=== PATIENT | female | born 1975 | race African-American/Black ===

== ENCOUNTER 2020-05-07 04:55 | Day surgery (SDC) | payer BC ==
[2020-05-01 17:20] VITALS: BMI 32.8
[2020-05-07] MEDS ORDERED: PROPOFOL 20 ML ONE (07:26)
[2020-05-07] MEDS ORDERED: ROCURONIUM BROMIDE 50 MG/5 ML SYRINGE ONE (07:26)
[2020-05-07] MEDS ORDERED: MIDAZOLAM HCL 2 MG/2 ML SINGLE DOSE VIAL ONE ×2 (07:35)
[2020-05-07] MEDS ORDERED: ROPIVACAINE HCL 0.5% 30ML VIAL ONE (07:38)
[2020-05-07] MEDS ORDERED: KETOROLAC TROMETHAMINE 30 MG/1 ML VIAL ONE ×2 (08:08→09:44)
[2020-05-07] MEDS ORDERED: DEXAMETHASONE SOD PHOSPHATE 4 MG/1 ML VIAL ONE (08:08)
[2020-05-07] MEDS ORDERED: ceFAZolin SODIUM 1 GM VIAL ONE (08:08)
[2020-05-07] MEDS ORDERED: LIDOCAINE HCL/PF 2% SDV 5ML VIAL ONE (08:08)
[2020-05-07] MEDS ORDERED: ceFAZolin 2 GRAM PREMIX BAG IVPB ONE (08:10)
[2020-05-07] MEDS ORDERED: EPHEDRINE SULFATE/0.9% NACL/PF 50 MG/10 ML SYRINGE NR ONE (08:38)
[2020-05-07] MEDS ORDERED: ACETAMINOPHEN INJECTION 100 ML IVPB ONE (08:40)
[2020-05-07] MEDS ORDERED: ONDANSETRON 4 MG/2 ML VIAL IVPUSH PRN ×2 (08:51→10:09)
[2020-05-07] MEDS ORDERED: PHENYLEPHRINE HCL 10 MG/1 ML SINGLE DOSE VIAL ONE (09:05)
[2020-05-07] MEDS ORDERED: HYDROmorphone HCl 2 MG/ML VIAL ONE (10:06)
[2020-05-07] MEDS ORDERED: BISACODYL 5 MG TABLET.DR (FP) PO PRN (10:09)
[2020-05-07] MEDS ORDERED: oxyCODONE HCL 5 MG TABLET PO PRN ×2 (10:09)
[2020-05-07] MEDS ORDERED: FAMOTIDINE 10 MG TABLET PO PRN (10:26)
[2020-05-07] MEDS ORDERED: ACETAMINOPHEN 325 MG TABLET (FP) PO SCH (11:15)
[2020-05-07] MEDS ORDERED: oxyCODONE HCL 5 MG TABLET PO ONE (13:25)
[2020-05-07] MEDS ORDERED: CEFAZOLIN 1 GM/D5W 1 GM/50 ML BAG IVPB SCH (14:00)
[2020-05-07] MEDS ORDERED: HYDROmorphone *PCA* 10MG/50ML DISP.SYRIN PCA SCH (15:15)
[2020-05-07] MEDS ORDERED: PCA PUMP KEY 1 EACH EACH ONE (15:50)
[2020-05-07] MEDS: LACTATED RINGERS SOLUTION 1,000 ML IV SCH (16:00)
[2020-05-07] MEDS: ACETAMINOPHEN 1000 MG/100 ML VIAL (NON FORMULARY) IVPB SCH ×2 (16:15→20:53)
[2020-05-07] MEDS: KETOROLAC TROMETHAMINE 30 MG/1 ML VIAL IVPUSH SCH ×2 (16:35→19:24)
[2020-05-07] MEDS: CEFAZOLIN 1 GM/D5W 1 GM/50 ML BAG IVPB SCH ×2 (17:00→23:09)
[2020-05-07 21:37] LABS: HEMATOCRIT 42.4 % (32.4-45.2); HEMOGLOBIN 13.6 GM/dL (10.7-15.3); MCH 27.3 pg (25.7-33.7); MCHC 32.1 g/dl (32.0-36.0); MEAN CELL VOLUME 85.1 fl (80-96); MEAN PLT VOLUME 10.1 fl (7.5-11.1); PLATELET COUNT 111 K/MM3 (134-434); RBC 4.99 M/mm3 (3.60-5.2); RDW 15.7 % (11.6-15.6); WHITE BLOOD COUNT 28.4 K/mm3 (4.0-10.0)
[2020-05-07 21:56] LABS: BLOOD UREA NITROGEN 9.8 mg/dL (7-18); CALCIUM 7.4 mg/dL (8.5-10.1)
[2020-05-07 22:00] LABS: CREATININE 0.9 mg/dL (0.55-1.3)
[2020-05-07] MEDS ORDERED: oxyCODONE HCL 10 MG SUSTAINED ACTING TABLET PO SCH (22:00)
[2020-05-07 22:43] LABS: POTASSIUM 6.3 mmol/L (3.5-5.1)
[2020-05-07] MEDS: busPIRone HCL 5 MG TABLET PO SCH (22:50)
[2020-05-07] MEDS: ESCITALOPRAM OXALATE 10 MG TABLET PO SCH (22:55)
[2020-05-07] MEDS: SODIUM ZIRCONIUM CYCLOSILICATE (LOKELMA) 10 GM PACKET PO SCH (23:30)
[2020-05-08] MEDS: ACETAMINOPHEN 1000 MG/100 ML VIAL (NON FORMULARY) IVPB SCH ×2 (02:04→08:45)
[2020-05-08] MEDS: KETOROLAC TROMETHAMINE 30 MG/1 ML VIAL IVPUSH SCH ×2 (02:04→10:04)
[2020-05-08] MEDS: CEFAZOLIN 1 GM/D5W 1 GM/50 ML BAG IVPB SCH ×4 (06:24→18:04)
[2020-05-08] MEDS: DOCUSATE SODIUM 100 MG CAPSULE (FP) PO PRN ×2 (06:25→20:58)
[2020-05-08] MEDS: SODIUM ZIRCONIUM CYCLOSILICATE (LOKELMA) 10 GM PACKET PO SCH ×2 (06:25→14:30)
[2020-05-08] MEDS: SIMETHICONE 80 MG TAB.CHEW (FP) PO PRN ×3 (06:25→20:58)
[2020-05-08 08:12] LABS: POTASSIUM 3.6 mmol/L (3.5-5.1)
[2020-05-08 08:14] LABS: HEMATOCRIT 30.6 % (32.4-45.2); HEMOGLOBIN 10.3 GM/dL (10.7-15.3); MCH 28.9 pg (25.7-33.7); MCHC 33.8 g/dl (32.0-36.0); MEAN CELL VOLUME 85.3 fl (80-96); PLATELET COUNT 87 K/MM3 (134-434); RBC 3.58 M/mm3 (3.60-5.2); RDW 15.9 % (11.6-15.6); WHITE BLOOD COUNT 22.5 K/mm3 (4.0-10.0)
[2020-05-08 08:17] LABS: CALCIUM 7.4 mg/dL (8.5-10.1)
[2020-05-08 08:18] LABS: BLOOD UREA NITROGEN 6.9 mg/dL (7-18)
[2020-05-08 08:21] LABS: CREATININE 0.7 mg/dL (0.55-1.3)
[2020-05-08] MEDS: LACTATED RINGERS SOLUTION 1,000 ML IV SCH ×2 (09:00)
[2020-05-08] MEDS ORDERED: morphine SULFATE 4 MG/ML VIAL IVPUSH PRN ×2 (09:09→11:28)
[2020-05-08] MEDS ORDERED: FAMOTIDINE 20 MG/50 ML IVPB 20 MG/50 ML MG IVPB ONE (09:30)
[2020-05-08] MEDS ORDERED: ALBUTEROL SO4 HFA INHALER IH PRN (09:33)
[2020-05-08] MEDS: ENOXAPARIN NA (PORCINE) 40 MG/0.4 ML DISP.SYRIN SQ SCH (10:04)
[2020-05-08] MEDS: busPIRone HCL 5 MG TABLET PO SCH ×2 (10:04→21:00)
[2020-05-08] MEDS ORDERED: ACETAMINOPHEN 325 MG TABLET (FP) PO PRN (15:00)
[2020-05-08] MEDS ORDERED: ACETAMINOPHEN 500 MG TABLET (FP) PO PRN (15:00)
[2020-05-08 15:15] LABS: HEMATOCRIT 27.6 % (32.4-45.2); HEMOGLOBIN 9.3 GM/dL (10.7-15.3); MCH 28.3 pg (25.7-33.7); MCHC 33.5 g/dl (32.0-36.0); MEAN CELL VOLUME 84.3 fl (80-96); MEAN PLT VOLUME 10.1 fl (7.5-11.1); PLATELET COUNT 100 K/MM3 (134-434); RBC 3.27 M/mm3 (3.60-5.2); WHITE BLOOD COUNT 20.2 K/mm3 (4.0-10.0)
[2020-05-08] MEDS ORDERED: PCA PUMP KEY 1 EACH EACH ONE (15:25)
[2020-05-08 15:35] LABS: POTASSIUM 3.5 mmol/L (3.5-5.1)
[2020-05-08 15:38] LABS: ALBUMIN 2.7 g/dl (3.4-5.0); BLOOD UREA NITROGEN 6.8 mg/dL (7-18); CALCIUM 7.3 mg/dL (8.5-10.1)
[2020-05-08 15:40] LABS: CREATININE 0.8 mg/dL (0.55-1.3)
[2020-05-08 15:42] LABS: BILIRUBIN,TOTAL 0.4 mg/dL (0.2-1)
[2020-05-08 15:44] LABS: TOT PROT 5.4 g/dl (6.4-8.2)
[2020-05-08] MEDS: ACETAMINOPHEN 325 MG TABLET (FP) PO PRN (18:04)
[2020-05-08] MEDS: oxyCODONE HCL 5 MG TABLET PO PRN (18:06)
[2020-05-08] MEDS: ESCITALOPRAM OXALATE 10 MG TABLET PO SCH (21:00)
[2020-05-09] MEDS: CEFAZOLIN 1 GM/D5W 1 GM/50 ML BAG IVPB SCH ×2 (01:11→09:54)
[2020-05-09] MEDS ORDERED: POLYETHYLENE GLYCOL 3350 119 GM BTL PO PRN (07:39)
[2020-05-09 08:36] LABS: BASO % 0.3 % (0-2.0); EOS % 0.4 % (0-4.5); HEMATOCRIT 28.2 % (32.4-45.2); HEMOGLOBIN 9.7 GM/dL (10.7-15.3); LYMPH % 7.7 % (8-40); MCH 29.3 pg (25.7-33.7); MCHC 34.2 g/dl (32.0-36.0); MEAN CELL VOLUME 85.4 fl (80-96); MEAN PLT VOLUME 9.5 fl (7.5-11.1); NEUT % 86.6 % (42.8-82.8); PLATELET COUNT 106 K/MM3 (134-434); RDW 16.3 % (11.6-15.6); WHITE BLOOD COUNT 17.6 K/mm3 (4.0-10.0)
[2020-05-09] MEDS: SIMETHICONE 80 MG TAB.CHEW (FP) PO PRN (08:43)
[2020-05-09] MEDS: ACETAMINOPHEN 325 MG TABLET (FP) PO PRN (08:43)
[2020-05-09] MEDS: oxyCODONE HCL 5 MG TABLET PO PRN (08:43)
[2020-05-09] MEDS: DOCUSATE SODIUM 100 MG CAPSULE (FP) PO PRN (08:43)
[2020-05-09 09:48] VITALS: TEMP 98.2
[2020-05-09] MEDS: ENOXAPARIN NA (PORCINE) 40 MG/0.4 ML DISP.SYRIN SQ SCH (09:54)
[2020-05-09] MEDS: busPIRone HCL 5 MG TABLET PO SCH (09:54)
[2020-05-09 13:25] VITALS: BP 121/76; PULSE 91
== END 2020-05-09 15:35 | disposition home or self-care (01) ==
LOC: JASUSAT 04:55 → EDSTATUS 07:30 → J3W 14:26 → JASUSAT 05-09 15:35
PROVIDERS: ATTEND Obstetrics & Gynecology
PROC: 30233N1 Transfusion of Nonautologous Red Blood Cells into Peripheral Vein, Percutaneous Approach (ICD-10-PCS; 2020-05-07)
PROC: 0UT90ZZ Resection of Uterus, Open Approach (ICD-10-PCS; principal; 2020-05-07 07:30)
DX: D25.1 Intramural leiomyoma of uterus (principal); D25.0 Submucous leiomyoma of uterus; D25.2 Subserosal leiomyoma of uterus; D64.9 Anemia, unspecified; N92.0 Excessive and frequent menstruation with regular cycle
CPT/HCPCS: 36415; 36430; 80048; 80053; 81025; 84703; 85025; 85027; 86850; 86900; 86901; 86922; 88305-TC; 94010; 94760; J0131; P9058